=== PATIENT | female | born 1945 ===

== ENCOUNTER 2022-12-04 10:07 | Inpatient (IN) | payer OTHER ==
[~2022-12-04] VITALS: Ht 157.5 cm; Wt 68.0 kg
[2022-12-05] MEDS ORDERED: SYNTHROID88 MCG PO (14:06)
[2022-12-05] MEDS ORDERED: PRAVASTATIN SOD40 MG PO (14:07)
[2022-12-05] MEDS ORDERED: ARIMIDEX PO (14:08)
[2022-12-05] MEDS ORDERED: TYLENOL325 MG PO (14:08)
[2022-12-05] MEDS ORDERED: B12 ACTIVE1000 MCG PO (14:08)
[2022-12-09] MEDS ORDERED: PERCOCET 5-3251 EACH PO (12:03)
[2022-12-09] MEDS ORDERED: MEDROLPACK PO (12:03)
[2022-12-09] MEDS ORDERED: AMOX-CLAV 875-1 EACH PO (12:04)
[2022-12-09] MEDS ORDERED: NEURONTIN800 MG PO (12:04)
[2022-12-09] MEDS ORDERED: ZOFRAN8 MG PO (12:05)
[2022-12-09] MEDS ORDERED: COLACE100 MG PO (12:05)
== END 2022-12-11 13:53 | DRG 455 ==
LOC: O/R 12-09 05:28 → PED 12-09 05:28 → SURG 12-09 10:15 → SURH 12-09 18:26 → PED 12-09 22:59
PROVIDERS: ADMIT Orthopaedic Surgery Orthopaedic Surgery of the Spine; ATTEND Orthopaedic Surgery Orthopaedic Surgery of the Spine
PROC: 0SG3071 Fusion of Lumbosacral Joint with Autologous Tissue Substitute, Posterior Approach, Posterior Column, Open Approach (ICD-10-PCS; 2022-12-09)
PROC: 0QB30ZZ Excision of Left Pelvic Bone, Open Approach (ICD-10-PCS; 2022-12-09)
PROC: 0ST40ZZ Resection of Lumbosacral Disc, Open Approach (ICD-10-PCS; 2022-12-09)
PROC: 07DR0ZZ Extraction of Iliac Bone Marrow, Open Approach (ICD-10-PCS; 2022-12-09)
PROC: XRGD0R7 Fusion of Lumbosacral Joint using Custom-Made Anatomically Designed Interbody Fusion Device, Open Approach, New Technology Group 7 (ICD-10-PCS; principal; 2022-12-09 18:15)
PROC: 3E0F7SF Introduction of Other Gas into Respiratory Tract, Via Natural or Artificial Opening (ICD-10-PCS; 2022-12-10)
PROC: 4A12X4Z Monitoring of Cardiac Electrical Activity, External Approach (ICD-10-PCS; 2022-12-10)
DX: M43.17 Spondylolisthesis, lumbosacral region (principal); M47.27 Other spondylosis with radiculopathy, lumbosacral region; M48.07 Spinal stenosis, lumbosacral region; E03.9 Hypothyroidism, unspecified; C50.919 Malignant neoplasm of unspecified site of unspecified female breast; E78.00 Pure hypercholesterolemia, unspecified